=== PATIENT | female | born 1985 | race Caucasian/White ===

== ENCOUNTER 2017-02-10 05:26 | Day surgery (SDC) | payer OTHER ==
[~2017-02-10] VITALS: Ht 172.7 cm; Wt 112.8 kg
[2017-02-10] VITALS (34 sets, daily range): BP systolic 119–156; BP diastolic 56–81; PULSE 72–124; RESP 11–24; Ht 172.7 cm; Wt 112.8 kg
[2017-02-10] MEDS ORDERED: OMEP20CA16 PO (07:04)
[2017-02-10] MEDS ORDERED: OXYB5SYR2 PO (07:04)
[2017-02-10] MEDS ORDERED: GLIP-95 PO (07:04)
[2017-02-10] MEDS ORDERED: MTF1000T PO (07:04)
[2017-02-10] MEDS ORDERED: LANT3I SC (07:04)
[2017-02-10] MEDS ORDERED: TRAM50TA2 PO (07:04)
[2017-02-10] MEDS ORDERED: BECL8.7A INH (07:04)
[2017-02-10] MEDS ORDERED: IBUP-1542 PO (07:04)
[2017-02-10] MEDS ORDERED: ZOLP10TA5 PO (07:04)
[2017-02-10] MEDS ORDERED: BENA10TA48 PO (07:04)
[2017-02-10] MEDS ORDERED: ALBU8.5H3 INH (07:04)
[2017-02-10] MEDS ORDERED: GABA300C16 PO (07:04)
[2017-02-10] MEDS ORDERED: POLYMYXIN/BACITRACIN 1L IRRIG ONE (07:09)
[2017-02-10 07:26] LABS: ADD SCAN DIFF NO
[2017-02-10 07:29] LABS: BASOPHIL # 0.1 10^3/ul (0.0-0.1); BASOPHILS % 0.5 % (0.0-2.0); EOSINOPHILS # 0.1 10^3/ul (0.0-0.5); EOSINOPHILS % 1.3 % (0.0-7.0); HEMATOCRIT 39.1 % (37.0-47.0); HEMOGLOBIN 12.9 g/dl (12.0-16.0); LYMPHOCYTES # 3.4 10^3/ul (0.8-2.9); LYMPHOCYTES % 34.1 % (15.0-51.0); MEAN CORPUSCULAR HEMOGLOBIN 28.3 pg (29.0-33.0); MEAN CORPUSCULAR VOLUME 85.7 fl (82.0-101.0); MONOCYTE # 0.4 10^3/ul (0.3-0.9); MONOCYTES % 3.9 % (0.0-11.0); NEUTROPHIL # 5.9 10^3/ul (1.6-7.5); PLATELET COUNT 428 10^3/UL (140-415); RED BLOOD COUNT 4.56 10^6/ul (4.20-5.40); RED CELL DISTRIBUTION WIDTH 13.6 % (11.5-14.5); WHITE BLOOD COUNT 9.8 10^3/ul (4.8-10.8)
[2017-02-10 07:30] LABS: ADD UMIC YES; URINE BILIRUBIN (Dip) NEGATIVE (NEGATIVE); URINE BLOOD (Dip) NEGATIVE (NEGATIVE); URINE COLOR LT. YELLOW (YELLOW); URINE GLUCOSE (Dip) NEGATIVE (NEGATIVE); URINE KETONES (Dip) NEGATIVE (NEGATIVE); URINE LEUKOCYTE ESTERASE (Dip) 1+ (NEGATIVE); URINE NITRITE (Dip) NEGATIVE (NEGATIVE); URINE TOTAL PROTEIN (Dip) NEGATIVE (NEGATIVE); URINE UROBILINOGEN (Dip) 0.2 E.U./dL (0.1-1.0)
[2017-02-10] MEDS ORDERED: PROPOFOL 20 ML ONE (07:37)
[2017-02-10] MEDS ORDERED: ROPIVACAINE 0.5 % 30 ML VIAL ONE (07:42)
--- NOTE | 2017-02-10 07:46 | HPN ---
Date/Time of Note Date/Time of Note DATE: 02/10/17 TIME: 07:45 Interval H&P Admission Note Pt. seen H&P reviewed: No system changes PEPE REYES MD Feb 10, 2017 07:46
--- NOTE | 2017-02-10 07:48 | OPR ---
Date/Time of Note Date/Time of Note DATE: 02/10/17 TIME: 07:46 Operative Report Procedure Date: Feb 10, 2017 Preoperative Diagnosis rt radial heal fracture with comminuation Postoperative Diagnosis same Operation Performed radial head replacement Surgeon: PEPE REYES MD Anesthesia: general Anesthesiologist: JELENA BAH Estimated Blood Loss: 0 - 10 ml's Complications: None Pt Condition Post Procedure: stable PEPE REYES MD Feb 10, 2017 07:48
[2017-02-10 07:53] LABS: BACTERIA,URINE MODERATE; SQUAMOUS EPITHELIAL CELL,UR MANY; URINE RBCS NONE SEEN /HPF (0)
[2017-02-10] MEDS ORDERED: DIPHENHYDRAMINE 50 MG INJ IV PRN (09:00)
[2017-02-10] MEDS ORDERED: HYDROmorphONE (0.2 MG/ML) 10ML SYG IV PRN ×3 (09:00)
[2017-02-10] MEDS ORDERED: hydrALAzine 20 MG INJ IV PRN (09:00)
[2017-02-10] MEDS ORDERED: MEPERIDINE 25 MG INJ IV PRN (09:00)
[2017-02-10] MEDS ORDERED: ONDANSETRON 4 MG INJ IV PRN (09:00)
[2017-02-10] MEDS ORDERED: LABETALOL HCL 20MG INJ IV PRN (09:00)
[2017-02-10] MEDS ORDERED: INSULIN ASPART [NOVOLOG] 3 ML PEN SC ONE (09:00)
[2017-02-10] MEDS ORDERED: EPHEDrine SULFATE 50 MG/5 ML SYG IV PRN (09:00)
[2017-02-10] MEDS ORDERED: FENTAnyl 50 MCG/ML VIAL IV PRN ×3 (09:00)
[2017-02-10] MEDS ORDERED: DEXAMETHASONE 4 MG/ML 1 ML INJ ONE (09:03)
[2017-02-10] MEDS ORDERED: ONDANSETRON 4 MG INJ ONE (09:04)
[2017-02-10] MEDS ORDERED: GLYCOPYRROLATE 0.4 MG INJ ONE (09:37)
[2017-02-10] MEDS ORDERED: NEOSTIGMINE 3 MG/3 ML SYRINGE ONE (09:37)
[2017-02-10] MEDS ORDERED: KETOROLAC 30 MG INJ ONE (09:37)
[2017-02-10] MEDS ORDERED: ALBUTEROL 0.5% (NEB) 2.5 MG/0.5 ML AMP ONE (10:40)
[2017-02-10] MEDS ORDERED: ALBUTEROL 0.083% (NEB) 2.5 MG/3 ML AMP HHN ONE (11:00)
--- NOTE | 2017-02-10 11:58 | OPR ---
DATE OF OPERATION: 02/10/2017 PREOPERATIVE DIAGNOSIS: Comminuted fracture radial head, right. POSTOPERATIVE DIAGNOSIS: Comminuted fracture radial head, right elbow. PROCEDURE PERFORMED: Radial head excision, radial head prosthetic arthroplasty implantation. SURGEON: Pepe Stephens MD SOFTWARE QUALITY MANAGER: Staff. VETERANS ADVISER: Oc Burns MD ANESTHESIA TECHNIQUE: General anesthetic by the anesthesiologist, supraclavicular block anesthesiologist. SURGICAL PAUSE: In the preoperative holding area, wqith the patient's family present. We interviewed the patient, she is deaf, so it is difficult. Marked the surgical incision, showed it to the patient, confirmed the operative procedure and plan. director labor standards was not available, we had to use family. INFORMED CONSENT: At the time we scheduled the operative procedure, in my office we talked to the patient about the risks and hazards of surgery again with a design printer balloon. We explained the risks and hazards and the patient signed a note confirming the informed consent conversation. DESCRIPTION OF PROCEDURE: The patient was taken to surgery, anesthetized as above, sterile prep and drape performed. A longitudinal incision made in the mid lateral aspect, lateral side right elbow. Elbow joint was opened and exposed two large free joint fracture fragments noted and extracted. The radial head was noted to be irregular. We excised the radial head and you can see on the residual part that the dislocated fracture fragments represented 40% of the articular surface of the radial head. X-rays were taken to make sure we got all the bone fragments out. I used the [employer] radial head implant system, entered the reamer and then reamed up to a size 7 radial head shaft. Selected a 20 mm head and a 10 mm neck. Assembled the trials and placed in the joint, fit well. Removed the trials and placed the final implant and ranged the elbow. It seated well, fit well and seemed to be not tight, not snug not over stuffed.. Closed the wound in layers with large Vicryl deep and Vicryl subcuticular. Steri-Strips on the skin. Care was taken to be well away from the predicted location of the radial nerve. Discharge medications are hydrocodone with acetaminophen, and Keflex. Followup will be in our office in a week. Intraoperative x-rays show the radial head implant to be in appropriate position , well seated. It was not snug, it was not overstuffed. Operative time was about an hour. Dictated By: PEPE ORELLANA/ANN-MARIE Conf#: [id number] DID#: [id number]
--- NOTE | 2017-02-11 07:33 | RADRPT ---
PROCEDURE: X-ray fluoroscopy guidance CLINICAL INDICATION: RT RADIAL HEAD REPLACEMENT TECHNIQUE: Fluoroscopic guidance was utilized for intraoperative procedure. COMPARISON: None. FINDINGS: Fluoroscopic guidance was utilized for intraoperative procedure. 16 seconds of fluoroscopy time was utilized for the procedure. 7 x-ray images were obtained during the procedure. There has been placement of a a radial head prosthesis in near anatomic alignment. IMPRESSION: X-ray fluoroscopic guidance utilized for intraoperative procedure. Placement of radial head prosthesis in near anatomic alignment. Please see procedure note details. RPTAT: EE Physician Amirah Date Time Electronically viewed and signed by Physician Amirah on 02/11/2017 07:33 /
--- NOTE | 2017-02-11 13:28 | OPPN ---
Date/Time of Note Date/Time of Note DATE: 02/11/17 TIME: 13:28 Post-Anesthesia Notes Post-Anesthesia Note Last documented vital signs Vital Signs Date Time Temp Pulse Resp B/P Pulse Ox O2 Delivery O2 Flow Rate FiO2 02/10/17 13:55 105 02/10/17 12:10 98.8 16 123/56 95 Room Air 02/10/17 11:19 2.0 Activity: WNL Respiratory function: WNL Cardiovascular function: WNL Mental status: Baseline Pain reasonably controlled: Yes Hydration appropriate: Yes Nausea/Vomiting absent: Yes JELENA BAH Feb 11, 2017 13:28
== END 2017-02-10 13:55 | disposition home or self-care (01) ==
LOC: SDS 05:26
PROVIDERS: ATTEND Orthopaedic Surgery Hand Surgery
DX: S52.121D Displaced fracture of head of right radius, subsequent encounter for closed fracture with routine healing (principal); X58.XXXD Exposure to other specified factors, subsequent encounter; I10 Essential (primary) hypertension; E11.9 Type 2 diabetes mellitus without complications; J45.909 Unspecified asthma, uncomplicated
CPT/HCPCS: 24366; 73080; 81001; 82962; 85025; 88304; 88311; 94664; J1100; J1815; J1885; J2405; J2710; J2795; J3010